=== PATIENT | male | born 1970 | race American Indian/Alaskan Native ===

== ENCOUNTER 2021-05-07 12:13 | Emergency (ER) | payer MEDICARE ==
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
[2021-05-07] MEDS ORDERED: TETRACAINE 0.5% OPHTH SOLN 4ML OU ONE (12:46)
[2021-05-07] MEDS ORDERED: FLUORESCEIN 1 MG STRIP OP ONE (12:46)
[2021-05-07] MEDS ORDERED: ERYTHROMYCIN 5 MG/1 GM OPHTH OINT OU ONE (13:00)
[2021-05-07] MEDS ORDERED: levETIRAcetam 1000 MG/NS 0.75% 0 MG/0 ML BAG IV ONE (13:14)
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
[2021-05-07 16:46] VITALS: BP 134/84
== END 2021-05-07 16:48 | disposition home or self-care (01) ==
LOC: ED 12:13
DX: S63.91XA Sprain of unspecified part of right wrist and hand, initial encounter (principal); S80.01XA Contusion of right knee, initial encounter; H11.31 Conjunctival hemorrhage, right eye; H10.9 Unspecified conjunctivitis; Z79.899 Other long term (current) drug therapy; Z98.890 Other specified postprocedural states; V49.49XA Driver injured in collision with other motor vehicles in traffic accident, initial encounter; Y92.410 Unspecified street and highway as the place of occurrence of the external cause; Y93.89 Activity, other specified; Y99.8 Other external cause status
CPT/HCPCS: 70480; J1953